=== PATIENT | male | born 2000 | race African-American/Black ===

== ENCOUNTER 2025-01-28 04:13 | Inpatient (IN) | payer OTHER, MEDICAID ==
[~2025-01-28] VITALS: Ht 188 cm; Wt 78.0 kg
[2025-01-28 04:22] VITALS: O2SAT 98
[2025-01-28] MEDS: HYDROCODONE/ACETAMINOPHEN 5/325MG TABLET PO ONE (05:00)
[2025-01-28] MEDS: LEVETIRACETAM 1000MG PREMIX 100 ML IV ONE (06:05)
[2025-01-28 06:30] LABS: BASOPHILS % 0.3 % (0.0-2.0); EOSINOPHILS % 0.1 % (0.0-5.0); HEMATOCRIT. 39.7 % (42.0-52.0); HEMOGLOBIN. 13.4 g/dL (14.0-18.0); LYMPHOCYTES % 10.1 % (20.0-50.0); MEAN PLATELET VOLUME 6.8 fl (7.4-10.4); MONOCYTES % 8.0 % (2.0-8.0); NEUTROPHILS % 81.5 % (40.0-76.0); PLATELET 208 x1000/uL (130-400); RED BLOOD CELL COUNT 4.44 mill/uL (4.7-6.1); RED CELL DISTRIBUTION WIDTH 14.7 % (11.6-14.6)
[2025-01-28] MEDS: LORAZEPAM 2MG/ML UD SYRINGE IV NR (06:35)
[2025-01-28 06:45] LABS: CREATININE 1.1 mg/dL (0.6-1.3); UREA NITROGEN BLOOD 10 mg/dL (9-23)
[2025-01-28 07:17] LABS: ETHANOL BLOOD < 10 mg/dL (<10)
[2025-01-28] MEDS ORDERED: CLONIDINE 0.1MG TABLET PO PRN (08:45)
[2025-01-28] MEDS ORDERED: ONDANSETRON HCL 4MG/2ML INJ IV PRN (08:45)
[2025-01-28] MEDS ORDERED: ACETAMINOPHEN 325MG TABLET PO PRN (08:45)
[2025-01-28] MEDS ORDERED: MAGNESIUM/ALUMINUM HYDROXIDE/SIMETHICONE 30ML UDC PO PRN (08:45)
[2025-01-28] MEDS: LEVETIRACETAM 500MG PREMIX 100 ML IV SCH (08:57)
[2025-01-28] MEDS: SODIUM CHLORIDE 0.9% 1,000 ML IV SCH (08:57)
[2025-01-28] MEDS ORDERED: LORAZEPAM 2MG/ML UD SYRINGE IV PRN (09:00)
[2025-01-28] MEDS: ENOXAPARIN 40MG/0.4ML SYR SUBCUT SCH (09:06)
[2025-01-28] MEDS: PANTOPRAZOLE SODIUM 40 MG/VIAL IV SCH (09:12)
[2025-01-28 10:30] VITALS: BP 121/72; PULSE 86; RESP 18; TEMP 36.7; O2SAT 97
[2025-01-28 12:00] VITALS: BP 124/67; PULSE 66; RESP 18; TEMP 36.6; O2SAT 98
[2025-01-28 16:00] VITALS: BP 128/79; PULSE 64; RESP 18; TEMP 36.5; O2SAT 98
[2025-01-28 20:00] VITALS: BP 130/75; PULSE 65; RESP 20; TEMP 36.4; O2SAT 97
[2025-01-28] MEDS ORDERED: ZOLPIDEM TARTRATE 5MG TABLET PO PRN (21:00)
[2025-01-28] MEDS ORDERED: NALOXONE HCL 0.4MG/ML VIAL IV PRN (22:00)
[2025-01-28] MEDS: MORPHINE SULFATE 4 MG/ML INJ (FOR IV/IM USE) IV SCH (22:31)
[2025-01-29] MEDS: HYDROCODONE/ACETAMINOPHEN 5/325MG TABLET PO PRN (01:06)
[2025-01-29 05:18] VITALS: BP 130/77; PULSE 64; RESP 18
[2025-01-29] MEDS ORDERED: KEPP500 MT (11:22)
== END 2025-01-29 13:00 | disposition left against medical advice (07) | DRG 101 ==
LOC: ER 04:13 → EDBEDREQ 05:54 → EDBEDREQTM 08:12 → EDBEDREQ 08:12 → ENRESERV 08:52 → 8WST 09:48 → EDBD 09:48
PROVIDERS: ADMIT Internal Medicine; ATTEND Internal Medicine
DX: G40.909 Epilepsy, unspecified, not intractable, without status epilepticus (principal); Z59.00 Homelessness unspecified; R53.1 Weakness; Z53.29 Procedure and treatment not carried out because of patient's decision for other reasons; T42.6X6A Underdosing of other antiepileptic and sedative-hypnotic drugs, initial encounter; Y92.89 Other specified places as the place of occurrence of the external cause; Z91.148 Patient's other noncompliance with medication regimen for other reason; Z95.0 Presence of cardiac pacemaker
CPT/HCPCS: 36415; 70486; 72128; 72131; 73522; 80048; 80320; 82962; 85025; 93005; 99285; J1650; J1953; J2060; J2270; J2470; G0480